=== PATIENT | male | born 1995 | race Caucasian/White ===

== ENCOUNTER 2016-04-15 08:52 | Emergency (ER) | payer OTHER ==
[2016-04-15] MEDS ORDERED: GI COCKTAIL 50ML BTL(HYOSCYAMINE/MAALOX/LIDOCAINE VISCOUS)(1:3:1) As Ordered ONE (09:22)
[2016-04-15 09:32] LABS: BASO % 0.5 % (0.0-1.0); EOS % 0.9 % (0.0-3.0); LARGE UNSTAINED CELL # 0.1 K/mm3 (0.0-0.4); LARGE UNSTAINED CELL % 1.4 % (0.0-4.0); LYMPH # 0.8 K/mm3 (1.5-6.5); LYMPH % 14.3 % (24.0-44.0); MEAN CORPUSCULAR HEMOGLOBIN 29.1 pg (27.0-33.0); MEAN CORPUSCULAR HGB CONC 35.1 g/dl (32.0-36.5); MONO # 0.4 K/mm3 (0.0-0.8); MONO % 6.4 % (0.0-5.0); NEUTROPHILS # 4.2 K/mm3 (1.8-7.7); NEUTROPHILS % 76.6 % (36.0-66.0); PLATELET COUNT, AUTOMATED 226 k/mm3 (150-450); RED CELL DISTRIBUTION WIDTH 12.2 % (11.5-14.5); WHITE BLOOD COUNT 5.5 K/mm3 (4.0-10.0)
[2016-04-15 09:37] LABS: INR 1.02
[2016-04-15 09:54] LABS: ALBUMIN 3.8 GM/DL (3.2-5.2); ALBUMIN/GLOBULIN RATIO 1.23 (1.00-1.93); ALKALINE PHOSPHATASE 77 U/L (45-117); ALT/SGPT 14 U/L (12-78); AMYLASE 44 U/L (25-115); ANION GAP 8 MEQ/L (8-16); AST/SGOT 12 U/L (15-37); BILIRUBIN,DIRECT 0.2 MG/DL (0.0-0.2); BILIRUBIN,TOTAL 0.6 MG/DL (0.2-1.0); BLOOD UREA NITROGEN 9 MG/DL (7-18); CALCIUM LEVEL 8.6 MG/DL (8.5-10.1); CARBON DIOXIDE LEVEL 28 MEQ/L (21-32); CHLORIDE LEVEL 104 MEQ/L (98-107); CREATININE FOR GFR 0.92 MG/DL (0.70-1.30); GLOMERULAR FILTRATION RATE > 60.0 (>60); GLUCOSE, FASTING 113 MG/DL (70-105); POTASSIUM SERUM 4.4 MEQ/L (3.5-5.1); SODIUM LEVEL 140 MEQ/L (136-145); TOTAL PROTEIN 6.9 GM/DL (6.4-8.2)
--- NOTE | 2016-04-15 11:00 | EDDOCDS ---
Physician Documentation [facility] Name: Td Smith Age: 20 yrs Sex: Male : 1995 Arrival Date: 04/15/2016 Time: 08:52 Bed PR Private MD: [facility] Disposition: 04/15/16 10:48 Discharged to Home/Self Care. Impression: Gastritis, unspecified, with bleeding - reported. - Condition is Stable. - Discharge Instructions: Gastritis, Adult, Peptic Ulcer Disease. - Prescriptions for Carafate 1 gram Oral Tablet - take 1 tablet by ORAL route 4 times per day take on an empty stomach, beginning on waking and last dose at bedtime; 20 tablet. Protonix 40 mg Oral Tablet - take 1 tablet by ORAL route once daily; 30 tablet. - Medication Reconciliation, Local Pharmacy Hours form. - Follow up: [facility]; When: 4 - 5 days; Reason: Recheck today's complaints. Follow up: Emergency Department; When: As needed; Reason: Worsening of conditions, fevers, severe pain, worsening vomiting/bleeding or rectal bleeding. - Problem is new. - Symptoms have improved. Historical: - Allergies: no known allergies; - Home Meds: 1. none - PMHx: none; - PSHx: Ear Tubes; - Social history: Smoking status: Chewing Tobacco No barriers to communication noted, The patient speaks fluent Faroese, Speaks appropriately for age. - Family history: Not pertinent. - : The pt / caregiver states he / she is not on anticoagulants. Home medication list is obtained from the patient. - Exposure Risk Screening:: None identified. Vital Signs: 04/15 08:54 BP 123 / 57; Pulse 94; Resp 16; Temp 97.3(O); Pulse Ox 99% ; Weight 74.84 kg / 164.99 cmb lbs; Height 5 ft. 10 in. (177.80 cm); Pain 7/10; 10:55 BP 117 / 57 RA Sitting (auto/lg); Pulse 72; Resp 16; Temp 98.1(O); Pulse Ox 99% on R/A; rs6 Pain 7/10; 08:54 Body Mass Index 23.67 (74.84 kg, 177.80 cm) cmb MDM: 09:12 GI Cocktail - (Alum-Mag Hydroxide-Simeth 30 ml, Lidocaine 10 ml, Hyoscyamine 10 ml) PO ar2 once; Pre-mixed 50mL unit dose ordered. 09:13 Amylase Ordered. EDMS 09:13 Basic Metabolic Profile Ordered. EDMS 09:13 CBC with Diff Ordered. EDMS 09:13 Lipase Ordered. EDMS 09:13 Liver Profile Ordered. EDMS 09:13 Pt & Aptt Ordered. EDMS 09:13 Type & Screen Ordered. EDMS 09:29 Financial registration complete. pm4 09:38 [facility] Payment Agreement was scanned into [employer] and attached to record. pm4 10:15 Basic Metabolic Profile Reviewed. ar2 10:15 CBC with Diff Reviewed. ar2 10:15 Liver Profile Reviewed. ar2 10:15 Amylase Reviewed. ar2 10:15 Lipase Reviewed. ar2 10:15 Pt & Aptt Reviewed. ar2 Administered Medications: 09:29 Drug: GI Cocktail - (Alum-Mag Hydroxide-Simeth Suspension 225 mg-200 mg-25 mg/5 mL 30 mlb1 ml, Lidocaine Liquid 2 % 10 ml, Hyoscyamine Liquid 10 ml) Route: PO; Signatures: Dispatcher [employer] EDTN Cresencio Gaming RN RN mlb1 Vin Bryant PAChelsy PA-Marie ar2 Moshe Boogie, Reg Reg pm4 The chart was reviewed and I authenticate all verbal orders and agree with the evaluation and treatment provided.Attachments: 09:38 [facility] Payment Agreement pm4 MTDD
--- NOTE | 2016-04-15 11:00 | EDDOCDS ---
Nurse's Notes [facility] Name: Td Smith Age: 20 yrs Sex: Male : 1995 Arrival Date: 04/15/2016 Time: 08:52 Bed PR1 / 25 [facility] Diagnosis: Gastritis, unspecified, with bleeding-reported Presentation: 04/15 08:56 Presenting complaint: Patient states: Epigastric pain worse when eating or drinking mlb1 began 1-2 weeks ago, vomited "blood". Risk factors: the patient reports not having a history of previous torsion. Adult Sepsis Screening: The patient does not have new or worsening altered mentation. Patient's respiratory rate is less than 22. Systolic blood pressure is greater than 100. Patient has a qSOFA score of 0- Negative Sepsis Screen. Suicide/Homicide risk assessment- the patient denies having any suicidal and/or homicidal ideations and does not present with any other emotional, behavioral or mental health complaints. Status: The patient is an active duty technology services manager. Transition of care: patient was not received from another setting of care. 08:56 Acuity: LIBERTY Level 3 mlb1 08:56 Method Of Arrival: Walkin/Carried/Asstd mlb1 Triage Assessment: 08:58 General: Appears in no apparent distress, Behavior is appropriate for age, cooperative. mlb1 Pain: Location: epigastric area Pain currently is 8 out of 10 on a pain scale. Pt Declines HIV testing. GI: Denies nausea. Historical: - Allergies: no known allergies; - Home Meds: 1. none - PMHx: none; - PSHx: Ear Tubes; - Social history: Smoking status: Chewing Tobacco No barriers to communication noted, The patient speaks fluent Ghanaian, Speaks appropriately for age. - Family history: Not pertinent. - : The pt / caregiver states he / she is not on anticoagulants. Home medication list is obtained from the patient. - Exposure Risk Screening:: None identified. Screenin:57 Screening information is obtained from the patient. Fall risk: No risks identified. mlb1 Assistance ADL's: requires no assistance with activities of daily living. Abuse/DV Screen: The patient / caregiver reports he/she is: not in a situation that causes fear, pain or injury. Nutritional screening: No deficits noted. Advance Directives: Currently, there is no health care proxy. home support is adequate. Assessment: 10:56 General: Appears in no apparent distress, Behavior is appropriate for age, cooperative. mlb1 Pain: Location: epigastric area Pain currently is 5 out of 10 on a pain scale. GI: Abdomen is flat, Bowel sounds present X 4 quads. Abd is soft and non tender X 4 quads. Derm: No deficits noted. Vital Signs: 08:54 BP 123 / 57; Pulse 94; Resp 16; Temp 97.3(O); Pulse Ox 99% ; Weight 74.84 kg; Height 5 cmb ft. 10 in. (177.80 cm); Pain 7/10; 10:55 BP 117 / 57 RA Sitting (auto/lg); Pulse 72; Resp 16; Temp 98.1(O); Pulse Ox 99% on R/A; rs6 Pain 7/10; 08:54 Body Mass Index 23.67 (74.84 kg, 177.80 cm) cmb Vitals: 08:54 Log In Time: April 15, 2016 at 08:52. cmb ED Course: 08:53 Patient visited by Keira Crockett. cmb 08:53 Patient moved to Waiting cmb 08:54 [facility] is Private Physician. cmb 08:55 Patient moved to Pre RCE cmb 08:56 Patient visited by Cresencio Gaming RN. mlb1 08:57 Triage Initiated mlb1 08:58 Patient visited by Cresencio Gaming RN. mlb1 09:04 [facility] ar2 09:04 Eliz Wright MD is Attending Physician. ar2 09:04 Patient visited by Vin Bryant PA-C. ar2 09:04 Patient moved to Triage 1 ck1 09:20 Pt & Aptt Sent. mlb1 09:20 Type & Screen Sent. mlb1 09:21 Amylase Sent. mlb1 09:21 Basic Metabolic Profile Sent. mlb1 09:21 CBC with Diff Sent. mlb1 09:21 Lipase Sent. mlb1 09:21 Liver Profile Sent. mlb1 09:30 Patient moved to TR2 mlb1 09:34 Patient name changed from Td\\S\\\\S\\Luis\\S\\ to Td\\S\\Christine\\S\\Luis. EDMS 09:38 [facility] Payment Agreement was scanned into [employer] and attached to record. pm4 10:18 Patient moved to PR dy 10:48 [facility] is Referral Physician. ar2 10:56 Patient visited by Mehnaz Rivero PCA. rs6 10:57 No IV's were initiated during this patient's visit. No procedures done that require mlb1 assistance. 10:58 The patient / caregiver is instructed regarding the plan of care and ED course. mlb1 Administered Medications: 09:29 Drug: GI Cocktail - (Alum-Mag Hydroxide-Simeth Suspension 225 mg-200 mg-25 mg/5 mL 30 mlb1 ml, Lidocaine Liquid 2 % 10 ml, Hyoscyamine Liquid 10 ml) Route: PO; Order Results: Lab Order: Amylase; SPEC'M 04/15/16 09:19 Test: AMYLASE; Value: 44; Range: 25-115; Units: U/L; Status: F Lab Order: Basic Metabolic Profile; SPEC'M 04/15/16 09:19 Test: GLUCOSE, FASTING; Value: 113; Range: 70-105; Abnormal: Above high normal; Units: MG/DL; Status: F Test: BLOOD UREA NITROGEN; Value: 9; Range: 7-18; Units: MG/DL; Status: F Test: CREATININE FOR GFR; Value: 0.92; Range: 0.70-1.30; Units: MG/DL; Status: F Test: GLOMERULAR FILTRATION RATE; Value: > 60.0; Range: >60; Status: F Test: SODIUM LEVEL; Value: 140; Range: 136-145; Units: MEQ/L; Status: F Test: POTASSIUM SERUM; Value: 4.4; Range: 3.5-5.1; Units: MEQ/L; Status: F Test: CHLORIDE LEVEL; Value: 104; Range: 98-107; Units: MEQ/L; Status: F Test: CARBON DIOXIDE LEVEL; Value: 28; Range: 21-32; Units: MEQ/L; Status: F Test: ANION GAP; Value: 8; Range: 8-16; Units: MEQ/L; Status: F Test: CALCIUM LEVEL; Value: 8.6; Range: 8.5-10.1; Units: MG/DL; Status: F Test Note: ; Units are mL/min/1.73 m2 Chronic Kidney Disease Staging per NKF: Stage I & II GFR >=60 Normal to Mildly Decreased Stage III GFR 30-59 Moderately Decreased Stage IV GFR 15-29 Severely Decreased Stage V GFR <15 Very Little GFR Left ESRD GFR <15 on BOTTOM LIQUOR ATTENDANT Lab Order: CBC with Diff; ADRIEN 04/15/16 09:19 Test: WHITE BLOOD COUNT; Value: 5.5; Range: 4.0-10.0; Units: K/mm3; Status: F Test: RED BLOOD COUNT; Value: 5.39; Range: 4.30-6.10; Units: M/mm3; Status: F Test: HEMOGLOBIN; Value: 15.7; Range: 14.0-18.0; Units: g/dl; Status: F Test: HEMATOCRIT; Value: 44.8; Range: 42.0-52.0; Units: %; Status: F Test: MEAN CORPUSCULAR VOLUME; Value: 83.0; Range: 80.0-96.0; Units: fl; Status: F Test: MEAN CORPUSCULAR HEMOGLOBIN; Value: 29.1; Range: 27.0-33.0; Units: pg; Status: F Test: MEAN CORPUSCULAR HGB CONC; Value: 35.1; Range: 32.0-36.5; Units: g/dl; Status: F Test: RED CELL DISTRIBUTION WIDTH; Value: 12.2; Range: 11.5-14.5; Units: %; Status: F Test: PLATELET COUNT, AUTOMATED; Value: 226; Range: 150-450; Units: k/mm3; Status: F Test: NEUTROPHILS %; Value: 76.6; Range: 36.0-66.0; Abnormal: Above high normal; Units: %; Status: F Test: LYMPH %; Value: 14.3; Range: 24.0-44.0; Abnormal: Below low normal; Units: %; Status: F Test: MONO %; Value: 6.4; Range: 0.0-5.0; Abnormal: Above high normal; Units: %; Status: F Test: EOS %; Value: 0.9; Range: 0.0-3.0; Units: %; Status: F Test: BASO %; Value: 0.5; Range: 0.0-1.0; Units: %; Status: F Test: LARGE UNSTAINED CELL %; Value: 1.4; Range: 0.0-4.0; Units: %; Status: F Test: NEUTROPHILS #; Value: 4.2; Range: 1.8-7.7; Units: K/mm3; Status: F Test: LYMPH #; Value: 0.8; Range: 1.5-6.5; Abnormal: Below low normal; Units: K/mm3; Status: F Test: MONO #; Value: 0.4; Range: 0.0-0.8; Units: K/mm3; Status: F Test: EOS #; Value: 0.0; Range: 0.0-0.50; Units: K/mm3; Status: F Test: BASO #; Value: 0.0; Range: 0.0-0.2; Units: K/mm3; Status: F Test: LARGE UNSTAINED CELL #; Value: 0.1; Range: 0.0-0.4; Units: K/mm3; Status: F Lab Order: Lipase; SPEC'M 04/15/16 09:19 Test: LIPASE; Value: 145; Range: 73-393; Units: U/L; Status: F Lab Order: Liver Profile; SPEC'M 04/15/16 09:19 Test: AST/SGOT; Value: 12; Range: 15-37; Abnormal: Below low normal; Units: U/L; Status: F Test: ALT/SGPT; Value: 14; Range: 12-78; Units: U/L; Status: F Test: ALKALINE PHOSPHATASE; Value: 77; Range: 45-117; Units: U/L; Status: F Test: BILIRUBIN,TOTAL; Value: 0.6; Range: 0.2-1.0; Units: MG/DL; Status: F Test: BILIRUBIN,DIRECT; Value: 0.2; Range: 0.0-0.2; Units: MG/DL; Status: F Test: TOTAL PROTEIN; Value: 6.9; Range: 6.4-8.2; Units: GM/DL; Status: F Test: ALBUMIN; Value: 3.8; Range: 3.2-5.2; Units: GM/DL; Status: F Test: ALBUMIN/GLOBULIN RATIO; Value: 1.23; Range: 1.00-1.93; Status: F Lab Order: Type & Screen; SPEC'M 04/15/16 09:19 Test: BLOOD TYPE; Value: O POS; Status: F Test: AB SCREEN (INDIRECT MARK)GEL; Value: NEGATIVE; Status: F Lab Order: Pt & Aptt; SPEC'M 04/15/16 09:19 Test: PROTHROMBIN TIME; Value: 13.5; Range: 12.3-14.5; Units: SECONDS; Status: F Test: INR; Value: 1.02; Status: F Test: PARTIAL THROMBOPLASTIN TIME; Value: 29.0; Range: 26.6-37.1; Units: SECONDS; Status: F Test Note: ; THERAPUTIC HUMAN INR VALUES INDICATIONS NORMAL RANGES PROPHYLAXIS/TREATMENT OF: VENOUS THROMBOSIS 2.0-3.0 PULMONARY EMBOLISM 2.0-3.0 PREVENTION OF SYSTEMIC EMBOLISM FROM: TISSUE HEART VALVES 2.0-3.0 ACUTE MYOCARDIAL INFARCTION 2.0-3.0 VALVULAR HEART DISEASE 2.0-3.0 ATRIAL FIBRILLATION 2.0-3.0 MECHANICAL VALVES(HIGH RISK) 2.5-3.5 RECURRENT MYOCARDIAL INFARCTION 2.5-3.5 Outcome: 10:48 Discharge ordered by Provider. ar2 10:57 Discharge Assessment: Patient awake, alert and oriented x 3. No cognitive and/or mlb1 functional deficits noted. Patient verbalized understanding of disposition instructions. patient administered narcotics - no. The following High Risk Discharge criteria are identified: None. Discharged to home ambulatory. Condition: good. Discharge instructions given to patient, Instructed on discharge instructions, follow up and referral plans. medication usage, Demonstrated understanding of instructions, medications, Pt was receptive of discharge instructions/ teaching. Prescriptions given X 2. No special radiology studies were completed. Property sent home with patient. 10:58 Patient left the ED. mlb1 Signatures: Dispatcher [employer] EDAbram Rainey RN RN dy Barney, Michael B, RN RN mlb1 Magda Mejia RN RN ck1 Vin Bryant PA-C PA-C ar2 Keira Crockett cmb Mehnaz Rivero, LABORATORY VETERINARIAN LABORATORY VETERINARIAN rs6 Moshe Boogie, Reg Reg pm4 MTDD
--- NOTE | 2016-04-17 11:59 | EDDOCDS ---
Physician Documentation [facility] Name: Td Smith Age: 20 yrs Sex: Male : 1995 Arrival Date: 04/15/2016 Time: 08:52 Bed PR Private MD: [facility] Disposition: 04/15/16 10:48 Discharged to Home/Self Care. Impression: Gastritis, unspecified, with bleeding - reported. - Condition is Stable. - Discharge Instructions: Gastritis, Adult, Peptic Ulcer Disease. - Prescriptions for Carafate 1 gram Oral Tablet - take 1 tablet by ORAL route 4 times per day take on an empty stomach, beginning on waking and last dose at bedtime; 20 tablet. Protonix 40 mg Oral Tablet - take 1 tablet by ORAL route once daily; 30 tablet. - Medication Reconciliation, Local Pharmacy Hours form. - Follow up: [facility]; When: 4 - 5 days; Reason: Recheck today's complaints. Follow up: Emergency Department; When: As needed; Reason: Worsening of conditions, fevers, severe pain, worsening vomiting/bleeding or rectal bleeding. - Problem is new. - Symptoms have improved. Historical: - Allergies: no known allergies; - Home Meds: 1. none - PMHx: none; - PSHx: Ear Tubes; - Social history: Smoking status: Chewing Tobacco No barriers to communication noted, The patient speaks fluent Polish, Speaks appropriately for age. - Family history: Not pertinent. - : The pt / caregiver states he / she is not on anticoagulants. Home medication list is obtained from the patient. - Exposure Risk Screening:: None identified. Vital Signs: 04/15 08:54 BP 123 / 57; Pulse 94; Resp 16; Temp 97.3(O); Pulse Ox 99% ; Weight 74.84 kg / 164.99 cmb lbs; Height 5 ft. 10 in. (177.80 cm); Pain 7/10; 10:55 BP 117 / 57 RA Sitting (auto/lg); Pulse 72; Resp 16; Temp 98.1(O); Pulse Ox 99% on R/A; rs6 Pain 7/10; 08:54 Body Mass Index 23.67 (74.84 kg, 177.80 cm) cmb MDM: 09:12 GI Cocktail - (Alum-Mag Hydroxide-Simeth 30 ml, Lidocaine 10 ml, Hyoscyamine 10 ml) PO ar2 once; Pre-mixed 50mL unit dose ordered. 09:13 Amylase Ordered. EDMS 09:13 Basic Metabolic Profile Ordered. EDMS 09:13 CBC with Diff Ordered. EDMS 09:13 Lipase Ordered. EDMS 09:13 Liver Profile Ordered. EDMS 09:13 Pt & Aptt Ordered. EDMS 09:13 Type & Screen Ordered. EDMS 09:29 Financial registration complete. pm4 09:38 [facility] Payment Agreement was scanned into [employer] and attached to record. pm4 10:15 Basic Metabolic Profile Reviewed. ar2 10:15 CBC with Diff Reviewed. ar2 10:15 Liver Profile Reviewed. ar2 10:15 Amylase Reviewed. ar2 10:15 Lipase Reviewed. ar2 10:15 Pt & Aptt Reviewed. ar2 14:02 T-Sheet-- Draft Copy was scanned into [employer] and attached to record. gb Administered Medications: 09:29 Drug: GI Cocktail - (Alum-Mag Hydroxide-Simeth Suspension 225 mg-200 mg-25 mg/5 mL 30 mlb1 ml, Lidocaine Liquid 2 % 10 ml, Hyoscyamine Liquid 10 ml) Route: PO; Signatures: Dispatcher [employer] EDMS Theresa Trevizo, Reg Reg gb Cresencio Gaming RN RN mlb1 Vin Bryant PA-C PAChelsy ar2 Moshe Boogie, Reg Reg pm4 The chart was reviewed and I authenticate all verbal orders and agree with the evaluation and treatment provided.Attachments: 09:38 [facility] Payment Agreement pm4 14:02 T-Sheet-- Draft Copy gb Chart Complete MTDD
--- NOTE | 2016-04-17 11:59 | EDDOCDS ---
Physician Documentation [facility] Name: Td Smith Age: 20 yrs Sex: Male : 1995 Arrival Date: 04/15/2016 Time: 08:52 Bed PR Private MD: [facility] Disposition: 04/15/16 10:48 Discharged to Home/Self Care. Impression: Gastritis, unspecified, with bleeding - reported. - Condition is Stable. - Discharge Instructions: Gastritis, Adult, Peptic Ulcer Disease. - Prescriptions for Carafate 1 gram Oral Tablet - take 1 tablet by ORAL route 4 times per day take on an empty stomach, beginning on waking and last dose at bedtime; 20 tablet. Protonix 40 mg Oral Tablet - take 1 tablet by ORAL route once daily; 30 tablet. - Medication Reconciliation, Local Pharmacy Hours form. - Follow up: [facility]; When: 4 - 5 days; Reason: Recheck today's complaints. Follow up: Emergency Department; When: As needed; Reason: Worsening of conditions, fevers, severe pain, worsening vomiting/bleeding or rectal bleeding. - Problem is new. - Symptoms have improved. Historical: - Allergies: no known allergies; - Home Meds: 1. none - PMHx: none; - PSHx: Ear Tubes; - Social history: Smoking status: Chewing Tobacco No barriers to communication noted, The patient speaks fluent Bulgarian, Speaks appropriately for age. - Family history: Not pertinent. - : The pt / caregiver states he / she is not on anticoagulants. Home medication list is obtained from the patient. - Exposure Risk Screening:: None identified. Vital Signs: 04/15 08:54 BP 123 / 57; Pulse 94; Resp 16; Temp 97.3(O); Pulse Ox 99% ; Weight 74.84 kg / 164.99 cmb lbs; Height 5 ft. 10 in. (177.80 cm); Pain 7/10; 10:55 BP 117 / 57 RA Sitting (auto/lg); Pulse 72; Resp 16; Temp 98.1(O); Pulse Ox 99% on R/A; rs6 Pain 7/10; 08:54 Body Mass Index 23.67 (74.84 kg, 177.80 cm) cmb MDM: 09:12 GI Cocktail - (Alum-Mag Hydroxide-Simeth 30 ml, Lidocaine 10 ml, Hyoscyamine 10 ml) PO ar2 once; Pre-mixed 50mL unit dose ordered. 09:13 Amylase Ordered. EDMS 09:13 Basic Metabolic Profile Ordered. EDMS 09:13 CBC with Diff Ordered. EDMS 09:13 Lipase Ordered. EDMS 09:13 Liver Profile Ordered. EDMS 09:13 Pt & Aptt Ordered. EDMS 09:13 Type & Screen Ordered. EDMS 09:29 Financial registration complete. pm4 09:38 [facility] Payment Agreement was scanned into [employer] and attached to record. pm4 10:15 Basic Metabolic Profile Reviewed. ar2 10:15 CBC with Diff Reviewed. ar2 10:15 Liver Profile Reviewed. ar2 10:15 Amylase Reviewed. ar2 10:15 Lipase Reviewed. ar2 10:15 Pt & Aptt Reviewed. ar2 14:02 T-Sheet-- Draft Copy was scanned into [employer] and attached to record. gb Administered Medications: 09:29 Drug: GI Cocktail - (Alum-Mag Hydroxide-Simeth Suspension 225 mg-200 mg-25 mg/5 mL 30 mlb1 ml, Lidocaine Liquid 2 % 10 ml, Hyoscyamine Liquid 10 ml) Route: PO; Signatures: Dispatcher [employer] EDMS Theresa Trevizo, Reg Reg gb Cresencio Gaming RN RN mlb1 Vin Bryant PA-C PAChelsy ar2 Moshe Boogie, Reg Reg pm4 The chart was reviewed and I authenticate all verbal orders and agree with the evaluation and treatment provided.Attachments: 09:38 [facility] Payment Agreement pm4 14:02 T-Sheet-- Draft Copy gb Chart Complete MTDD
--- NOTE | 2016-04-17 11:59 | EDDOCDS ---
Nurse's Notes [facility] Name: Td Smith Age: 20 yrs Sex: Male : 1995 Arrival Date: 04/15/2016 Time: 08:52 Bed PR1 / 25 [facility] Diagnosis: Gastritis, unspecified, with bleeding-reported Presentation: 04/15 08:56 Presenting complaint: Patient states: Epigastric pain worse when eating or drinking mlb1 began 1-2 weeks ago, vomited "blood". Risk factors: the patient reports not having a history of previous torsion. Adult Sepsis Screening: The patient does not have new or worsening altered mentation. Patient's respiratory rate is less than 22. Systolic blood pressure is greater than 100. Patient has a qSOFA score of 0- Negative Sepsis Screen. Suicide/Homicide risk assessment- the patient denies having any suicidal and/or homicidal ideations and does not present with any other emotional, behavioral or mental health complaints. Status: The patient is an active duty environmental service aide. Transition of care: patient was not received from another setting of care. 08:56 Acuity: LIBERTY Level 3 mlb1 08:56 Method Of Arrival: Walkin/Carried/Asstd mlb1 Triage Assessment: 08:58 General: Appears in no apparent distress, Behavior is appropriate for age, cooperative. mlb1 Pain: Location: epigastric area Pain currently is 8 out of 10 on a pain scale. Pt Declines HIV testing. GI: Denies nausea. Historical: - Allergies: no known allergies; - Home Meds: 1. none - PMHx: none; - PSHx: Ear Tubes; - Social history: Smoking status: Chewing Tobacco No barriers to communication noted, The patient speaks fluent Stateless, Speaks appropriately for age. - Family history: Not pertinent. - : The pt / caregiver states he / she is not on anticoagulants. Home medication list is obtained from the patient. - Exposure Risk Screening:: None identified. Screenin:57 Screening information is obtained from the patient. Fall risk: No risks identified. mlb1 Assistance ADL's: requires no assistance with activities of daily living. Abuse/DV Screen: The patient / caregiver reports he/she is: not in a situation that causes fear, pain or injury. Nutritional screening: No deficits noted. Advance Directives: Currently, there is no health care proxy. home support is adequate. Assessment: 10:56 General: Appears in no apparent distress, Behavior is appropriate for age, cooperative. mlb1 Pain: Location: epigastric area Pain currently is 5 out of 10 on a pain scale. GI: Abdomen is flat, Bowel sounds present X 4 quads. Abd is soft and non tender X 4 quads. Derm: No deficits noted. Vital Signs: 08:54 BP 123 / 57; Pulse 94; Resp 16; Temp 97.3(O); Pulse Ox 99% ; Weight 74.84 kg; Height 5 cmb ft. 10 in. (177.80 cm); Pain 7/10; 10:55 BP 117 / 57 RA Sitting (auto/lg); Pulse 72; Resp 16; Temp 98.1(O); Pulse Ox 99% on R/A; rs6 Pain 7/10; 08:54 Body Mass Index 23.67 (74.84 kg, 177.80 cm) cmb Vitals: 08:54 Log In Time: April 15, 2016 at 08:52. cmb ED Course: 08:53 Patient visited by Keira Crockett. cmb 08:53 Patient moved to Waiting cmb 08:54 [facility] is Private Physician. cmb 08:55 Patient moved to Pre RCE cmb 08:56 Patient visited by Cresencio Gaming RN. mlb1 08:57 Triage Initiated mlb1 08:58 Patient visited by Cresencio Gaming RN. mlb1 09:04 [facility] ar2 09:04 Eliz Wright MD is Attending Physician. ar2 09:04 Patient visited by Vin Bryant PA-C. ar2 09:04 Patient moved to Triage 1 ck1 09:20 Pt & Aptt Sent. mlb1 09:20 Type & Screen Sent. mlb1 09:21 Amylase Sent. mlb1 09:21 Basic Metabolic Profile Sent. mlb1 09:21 CBC with Diff Sent. mlb1 09:21 Lipase Sent. mlb1 09:21 Liver Profile Sent. mlb1 09:30 Patient moved to TR2 mlb1 09:34 Patient name changed from Td\\S\\\\S\\Luis\\S\\ to Td\\S\\Christine\\S\\Luis. EDMS 09:38 [facility] Payment Agreement was scanned into [employer] and attached to record. pm4 10:18 Patient moved to dy 10:48 [facility] is Referral Physician. ar2 10:56 Patient visited by Mehnaz Rivero PCA. rs6 10:57 No IV's were initiated during this patient's visit. No procedures done that require mlb1 assistance. 10:58 The patient / caregiver is instructed regarding the plan of care and ED course. mlb1 14:02 T-Sheet-- Draft Copy was scanned into [employer] and attached to record. gb Administered Medications: 09:29 Drug: GI Cocktail - (Alum-Mag Hydroxide-Simeth Suspension 225 mg-200 mg-25 mg/5 mL 30 mlb1 ml, Lidocaine Liquid 2 % 10 ml, Hyoscyamine Liquid 10 ml) Route: PO; Order Results: Lab Order: Amylase; SPEC'M 04/15/16 09:19 Test: AMYLASE; Value: 44; Range: 25-115; Units: U/L; Status: F Lab Order: Basic Metabolic Profile; SPEC'M 04/15/16 09:19 Test: GLUCOSE, FASTING; Value: 113; Range: 70-105; Abnormal: Above high normal; Units: MG/DL; Status: F Test: BLOOD UREA NITROGEN; Value: 9; Range: 7-18; Units: MG/DL; Status: F Test: CREATININE FOR GFR; Value: 0.92; Range: 0.70-1.30; Units: MG/DL; Status: F Test: GLOMERULAR FILTRATION RATE; Value: > 60.0; Range: >60; Status: F Test: SODIUM LEVEL; Value: 140; Range: 136-145; Units: MEQ/L; Status: F Test: POTASSIUM SERUM; Value: 4.4; Range: 3.5-5.1; Units: MEQ/L; Status: F Test: CHLORIDE LEVEL; Value: 104; Range: 98-107; Units: MEQ/L; Status: F Test: CARBON DIOXIDE LEVEL; Value: 28; Range: 21-32; Units: MEQ/L; Status: F Test: ANION GAP; Value: 8; Range: 8-16; Units: MEQ/L; Status: F Test: CALCIUM LEVEL; Value: 8.6; Range: 8.5-10.1; Units: MG/DL; Status: F Test Note: ; Units are mL/min/1.73 m2 Chronic Kidney Disease Staging per NKF: Stage I & II GFR >=60 Normal to Mildly Decreased Stage III GFR 30-59 Moderately Decreased Stage IV GFR 15-29 Severely Decreased Stage V GFR <15 Very Little GFR Left ESRD GFR <15 on [employer] Lab Order: CBC with Diff; SPEC'M 04/15/16 09:19 Test: WHITE BLOOD COUNT; Value: 5.5; Range: 4.0-10.0; Units: K/mm3; Status: F Test: RED BLOOD COUNT; Value: 5.39; Range: 4.30-6.10; Units: M/mm3; Status: F Test: HEMOGLOBIN; Value: 15.7; Range: 14.0-18.0; Units: g/dl; Status: F Test: HEMATOCRIT; Value: 44.8; Range: 42.0-52.0; Units: %; Status: F Test: MEAN CORPUSCULAR VOLUME; Value: 83.0; Range: 80.0-96.0; Units: fl; Status: F Test: MEAN CORPUSCULAR HEMOGLOBIN; Value: 29.1; Range: 27.0-33.0; Units: pg; Status: F Test: MEAN CORPUSCULAR HGB CONC; Value: 35.1; Range: 32.0-36.5; Units: g/dl; Status: F Test: RED CELL DISTRIBUTION WIDTH; Value: 12.2; Range: 11.5-14.5; Units: %; Status: F Test: PLATELET COUNT, AUTOMATED; Value: 226; Range: 150-450; Units: k/mm3; Status: F Test: NEUTROPHILS %; Value: 76.6; Range: 36.0-66.0; Abnormal: Above high normal; Units: %; Status: F Test: LYMPH %; Value: 14.3; Range: 24.0-44.0; Abnormal: Below low normal; Units: %; Status: F Test: MONO %; Value: 6.4; Range: 0.0-5.0; Abnormal: Above high normal; Units: %; Status: F Test: EOS %; Value: 0.9; Range: 0.0-3.0; Units: %; Status: F Test: BASO %; Value: 0.5; Range: 0.0-1.0; Units: %; Status: F Test: LARGE UNSTAINED CELL %; Value: 1.4; Range: 0.0-4.0; Units: %; Status: F Test: NEUTROPHILS #; Value: 4.2; Range: 1.8-7.7; Units: K/mm3; Status: F Test: LYMPH #; Value: 0.8; Range: 1.5-6.5; Abnormal: Below low normal; Units: K/mm3; Status: F Test: MONO #; Value: 0.4; Range: 0.0-0.8; Units: K/mm3; Status: F Test: EOS #; Value: 0.0; Range: 0.0-0.50; Units: K/mm3; Status: F Test: BASO #; Value: 0.0; Range: 0.0-0.2; Units: K/mm3; Status: F Test: LARGE UNSTAINED CELL #; Value: 0.1; Range: 0.0-0.4; Units: K/mm3; Status: F Lab Order: Lipase; SPEC'M 04/15/16 09:19 Test: LIPASE; Value: 145; Range: 73-393; Units: U/L; Status: F Lab Order: Liver Profile; SPEC'M 04/15/16 09:19 Test: AST/SGOT; Value: 12; Range: 15-37; Abnormal: Below low normal; Units: U/L; Status: F Test: ALT/SGPT; Value: 14; Range: 12-78; Units: U/L; Status: F Test: ALKALINE PHOSPHATASE; Value: 77; Range: 45-117; Units: U/L; Status: F Test: BILIRUBIN,TOTAL; Value: 0.6; Range: 0.2-1.0; Units: MG/DL; Status: F Test: BILIRUBIN,DIRECT; Value: 0.2; Range: 0.0-0.2; Units: MG/DL; Status: F Test: TOTAL PROTEIN; Value: 6.9; Range: 6.4-8.2; Units: GM/DL; Status: F Test: ALBUMIN; Value: 3.8; Range: 3.2-5.2; Units: GM/DL; Status: F Test: ALBUMIN/GLOBULIN RATIO; Value: 1.23; Range: 1.00-1.93; Status: F Lab Order: Type & Screen; SPEC'M 04/15/16 09:19 Test: BLOOD TYPE; Value: O POS; Status: F Test: AB SCREEN (INDIRECT MARK)GEL; Value: NEGATIVE; Status: F Lab Order: Pt & Aptt; SPEC'M 04/15/16 09:19 Test: PROTHROMBIN TIME; Value: 13.5; Range: 12.3-14.5; Units: SECONDS; Status: F Test: INR; Value: 1.02; Status: F Test: PARTIAL THROMBOPLASTIN TIME; Value: 29.0; Range: 26.6-37.1; Units: SECONDS; Status: F Test Note: ; THERAPUTIC HUMAN INR VALUES INDICATIONS NORMAL RANGES PROPHYLAXIS/TREATMENT OF: VENOUS THROMBOSIS 2.0-3.0 PULMONARY EMBOLISM 2.0-3.0 PREVENTION OF SYSTEMIC EMBOLISM FROM: TISSUE HEART VALVES 2.0-3.0 ACUTE MYOCARDIAL INFARCTION 2.0-3.0 VALVULAR HEART DISEASE 2.0-3.0 ATRIAL FIBRILLATION 2.0-3.0 MECHANICAL VALVES(HIGH RISK) 2.5-3.5 RECURRENT MYOCARDIAL INFARCTION 2.5-3.5 Outcome: 10:48 Discharge ordered by Provider. ar2 10:57 Discharge Assessment: Patient awake, alert and oriented x 3. No cognitive and/or mlb1 functional deficits noted. Patient verbalized understanding of disposition instructions. patient administered narcotics - no. The following High Risk Discharge criteria are identified: None. Discharged to home ambulatory. Condition: good. Discharge instructions given to patient, Instructed on discharge instructions, follow up and referral plans. medication usage, Demonstrated understanding of instructions, medications, Pt was receptive of discharge instructions/ teaching. Prescriptions given X 2. No special radiology studies were completed. Property sent home with patient. 10:58 Patient left the ED. mlb1 Signatures: Dispatcher [employer] EDMS Theresa Trevizo, Abram Sharif RN RN dy Barney, Michael B, RN RN mlb1 Magda Mejia RN RN ck1 Vin Bryant PA-C PA-C ar2 Keira Crockett Rebecca, THORACIC SURGEON THORACIC SURGEON rs6 Moshe Boogie, Reg Reg pm4 Chart Complete MTDD
== END 2016-04-15 10:58 | disposition home or self-care (01) ==
LOC: M ED 08:52
DX: K29.71 Gastritis, unspecified, with bleeding (principal); Z96.22 Myringotomy tube(s) status; F17.220 Nicotine dependence, chewing tobacco, uncomplicated